=== PATIENT | female | born 1990 | race Caucasian/White ===

== ENCOUNTER 2017-04-30 21:11 | Emergency (ER) | payer OTHER, SELFPAY ==
[2017-04-30 22:53] LABS: #Basophils 0.1 thou/uL (0.0-0.2); #Eosinphils 0.4 thou/uL (0.0-0.7); #Lymphocytes 4.5 thou/uL (1.20-3.40); #Monocytes 0.6 thou/uL (0.11-0.59); %Basophils 1.1 % (0.0-1.0); %Eosinophils 3.2 % (0.0-10.0); %Lymphocytes 38.7 % (21.0-51.0); %Monocytes 5.2 % (0.0-10.0); Hematocrit 47.9 % (36.0-47.0); Mean Platelet Volume 7.6 fL (7.4-10.4); Red Blood Cell (RBC) Count 5.03 mill/uL (4.20-5.40); White Blood Cell (WBC) Count 11.6 thou/uL (4.8-10.8)
[2017-04-30 22:53] LABS: Bilirubin Negative (Negative); Blood, Urine Negative (Negative); Glucose, Urine (Dipstick) Negative (Negative); Ketone, Urine Negative (Negative); Nitrite Negative (Negative); Protein, Urine (Dipstick) Negative (Neg-Trace); Urobilinogen 0.2 mg/dL (0.2-1.0)
[2017-04-30 23:02] LABS: Amphetamine Not Detected (NotDetected); Methadone Not Detected (NotDetected); Methamphetamine Not Detected (NotDetected)
[2017-04-30 23:03] LABS: Acetaminophen Less than 6.0 mcg/mL (10.0-30.0); Salicylate Less than 8.0 mg/dL (15.0-30.0)
[2017-04-30 23:06] LABS: ALT (SGPT) 37 U/L (8-55); AST (SGOT) 17 U/L (5-34); Alkaline Phosphatase 66 U/L (40-150); Anion Gap 16 mmol/L (10-20); BUN (Urea Nitrogen) 12 mg/dL (7.0-18.7); Bilirubin, Total 0.5 mg/dL (0.2-1.2); CK (CPK) 50 U/L (29-168); Calc. Creatinine Clearance 0 mL/min (70-130); Calcium 9.5 mg/dL (7.8-10.44); Carbon Dioxide 24 mmol/L (22-29); Chloride 104 mmol/L (98-107); Estimated GFR-MDRD 83; Protein, Total 7.5 g/dL (6.0-8.3)
[2017-04-30] MEDS ORDERED: Acetaminophen 500 MG TAB ONE (23:18)
[2017-04-30 23:27] LABS: Bacteria/HPF 3+ HPF (None Seen); Hyaline Casts/LPF NONE SEEN LPF (0-3 Hyaline); RBC/HPF 0-3 HPF (0-3); Squamous Epithelial 0-3 HPF (0-3)
[2017-05-01] MEDS ORDERED: Lorazepam 2 MG/ML VIAL ONE (01:05)
== END 2017-05-01 01:50 | disposition home or self-care (01) ==
LOC: SCSER 21:11
DX: F31.81 Bipolar II disorder (principal); F41.9 Anxiety disorder, unspecified; F17.210 Nicotine dependence, cigarettes, uncomplicated
CPT/HCPCS: 80053; 80306; 80307; 81003; 81015; 81025; 82550; 84443; 85025; 96372; J2060